=== PATIENT | female | born 1945 | race Caucasian/White ===

== ENCOUNTER 2017-03-07 06:49 | Day surgery (SDC) ==
[2017-03-07] MEDS: TETRACAINE 0.5% UNIT-DOSE OP PRN ×2 (07:15→08:01)
[2017-03-07] MEDS: BETADINE OPTH PREP OP PRN ×2 (07:16→08:02)
[2017-03-07] MEDS: CYCLOGYL 2% OPTH OP PRN ×3 (07:17→07:27)
[2017-03-07] MEDS ORDERED: OMIDRIA 1-0.3% IN BSS BAG IR ONE (07:43)
[2017-03-07] MEDS ORDERED: MOXIFLOXACIN 150 MCG/0.1 ML-BSS INJ (SURGERY) IO ONE (07:43)
[2017-03-07] MEDS ORDERED: AK-DILATE 10% OPTH SOL OP PRN (07:43)
[2017-03-07] MEDS ORDERED: NIRAVAM ODT (SURGERY) PO PRN (07:43)
[2017-03-07] MEDS ORDERED: BRIMONIDINE TARTRATE 0.2% OPTH SOL OP PRN (07:43)
[2017-03-07] MEDS ORDERED: ZOFRAN 4 MG/2 ML IVP ONE (07:43)
[2017-03-07 07:50] VITALS: TEMP 98
[2017-03-07] MEDS: LIDOCAINE 1%/PHENYLEPHRINE 1.5% BSS (SURGERY) INTRAOCULA ONE ×2 (08:01→08:19)
[2017-03-07] MEDS ORDERED: TORADOL ONE (08:10)
[2017-03-07] MEDS ORDERED: DIPRIVAN 20 ML VIAL IVP ONE (08:10)
[2017-03-07] MEDS ORDERED: VERSED ONE (08:10)
[2017-03-07] MEDS ORDERED: SUBLIMAZE ONE (08:10)
[2017-03-07 08:54] VITALS: BP 124/58
== END 2017-03-07 08:55 | disposition home or self-care (01) ==
LOC: SURG 06:49
PROVIDERS: ATTEND Ophthalmology
DX: H25.812 Combined forms of age-related cataract, left eye (principal)

== ENCOUNTER 2017-03-21 07:19 | Day surgery (SDC) ==
[2017-03-21] MEDS ORDERED: AK-DILATE 10% OPTH SOL OP PRN ×2 (07:45→11:39)
[2017-03-21] MEDS ORDERED: LIDOCAINE 1%/PHENYLEPHRINE 1.5% BSS (SURGERY) INTRAOCULA ONE ×2 (07:45→11:39)
[2017-03-21] MEDS ORDERED: TETRACAINE 0.5% UNIT-DOSE OP PRN ×2 (07:45→11:39)
[2017-03-21] MEDS ORDERED: MOXIFLOXACIN 150 MCG/0.1 ML-BSS INJ (SURGERY) IO ONE ×2 (07:45→11:39)
[2017-03-21] MEDS ORDERED: OMIDRIA 1-0.3% IN BSS BAG IR ONE ×2 (07:45→11:39)
[2017-03-21] MEDS ORDERED: BETADINE OPTH PREP OP PRN ×2 (07:45→11:39)
[2017-03-21] MEDS ORDERED: NIRAVAM ODT (SURGERY) PO PRN ×2 (07:45→11:39)
[2017-03-21] MEDS ORDERED: BRIMONIDINE TARTRATE 0.2% OPTH SOL OP PRN ×2 (07:45→11:39)
[2017-03-21] MEDS ORDERED: ZOFRAN 4 MG/2 ML IVP ONE ×2 (07:45→11:39)
[2017-03-21] MEDS: CYCLOGYL 2% OPTH OP PRN ×3 (07:45→07:55)
[2017-03-21 08:05] VITALS: TEMP 97
[2017-03-21] MEDS ORDERED: DIPRIVAN 20 ML VIAL IVP ONE (08:35)
[2017-03-21] MEDS ORDERED: TORADOL ONE (08:35)
[2017-03-21] MEDS ORDERED: VERSED ONE (08:35)
[2017-03-21] MEDS ORDERED: SUBLIMAZE ONE (08:35)
[2017-03-21 09:31] VITALS: BP 118/54
[2017-03-21] MEDS ORDERED: CYCLOGYL 2% OPTH OP PRN (11:39)
[2017-03-21] MEDS ORDERED: LIDOCAINE 1% 20 ML MDV ID STA ×2 (11:39→12:10)
== END 2017-03-21 09:57 | disposition home or self-care (01) ==
LOC: SURG 07:19
PROVIDERS: ATTEND Ophthalmology
DX: H25.811 Combined forms of age-related cataract, right eye (principal)